=== PATIENT | male | born 1980 | race Two or more races ===

== ENCOUNTER 2018-04-27 19:26 | Emergency (ER) | payer BC, OTHER ==
[~2018-04-27] VITALS: Ht 177.8 cm; Wt 111.1 kg
--- NOTE | 2018-04-27 19:40 | NUR ---
Ev BANDA PA-C IS AT THE BEDSIDE EVALUATING THE PT.
[2018-04-27] MEDS ORDERED: HYDROCODONE/APAP 5/325MG 1 EACH TABLET ONE (19:48)
[2018-04-27] MEDS ORDERED: KETOROLAC TROMETHAMINE INJ 60 MG/2 ML VIAL IM ONE ×2 (19:48→20:00)
[2018-04-27] MEDS ORDERED: DIAZEPAM 5 MG TABLET ONE (19:48)
--- NOTE | 2018-04-27 19:55 | NUR ---
PT AMBULATED TO RADIOLOGY WITH BUSINESS ANALYST CONSULTANT FOR CT LUMBAR
[2018-04-27] MEDS ORDERED: DIAZEPAM 10 MG TABLET PO ONE (20:00)
[2018-04-27] MEDS ORDERED: HYDROCODONE/APAP 5/325MG 1 EACH TABLET PO ONE (20:00)
--- NOTE | 2018-04-27 20:03 | NUR ---
PT RETURNED FROM CT.
--- NOTE | 2018-04-27 20:29 | NUR ---
Patient discharged to home in stable condition. Written and verbal after care instructions given. Patient verbalizes understanding of instruction AND RX. PT AMBULATED OUT WITH A STEADY GAIT. PT WAS INSTRUCTED NOT TO DRIVE. VSS.
[2018-04-27 20:36] VITALS: BP 134/89
== END 2018-04-27 20:29 | disposition home or self-care (01) ==
LOC: ER 19:26
DX: M54.42 Lumbago with sciatica, left side (principal); G89.29 Other chronic pain
CPT/HCPCS: 72131-TC; J1885